=== PATIENT | female | born 1950 | race Caucasian/White ===

== ENCOUNTER 2023-11-23 11:05 | Day surgery (SDC) | payer MEDICARE ==
[2023-11-20 10:45] VITALS: BMI 26.0
[2023-11-23] MEDS ORDERED: Rocuronium Bromide 10 MG/ML (10ML VIAL) ONE (11:52)
[2023-11-23] MEDS ORDERED: Dexamethasone 20 MG/5 ML VIAL ONE (14:15)
[2023-11-23] MEDS ORDERED: Lidocaine 1% PF 5 ML VIAL ONE (14:15)
[2023-11-23] MEDS ORDERED: Ondansetron PF 4 MG/2 ML Vial ONE (14:15)
[2023-11-23] MEDS ORDERED: PROPOFOL 200 MG/20 ML VIAL ONE (14:15)
== END 2023-11-23 15:50 | disposition home or self-care (01) ==
LOC: MRI 11:05
PROVIDERS: ATTEND Family Medicine Sports Medicine
DX: M48.56XA Collapsed vertebra, not elsewhere classified, lumbar region, initial encounter for fracture (principal); E78.5 Hyperlipidemia, unspecified; J45.909 Unspecified asthma, uncomplicated; G43.909 Migraine, unspecified, not intractable, without status migrainosus; M54.9 Dorsalgia, unspecified; M19.90 Unspecified osteoarthritis, unspecified site; Z90.49 Acquired absence of other specified parts of digestive tract; Z98.890 Other specified postprocedural states; Z79.51 Long term (current) use of inhaled steroids; Z79.899 Other long term (current) drug therapy
CPT/HCPCS: 72148; J1100; J2405; J2704

== ENCOUNTER 2024-01-18 11:36 | Outpatient (CLI) | payer MEDICARE, OTHER | END 2024-01-18 11:37 | disposition home or self-care (01) | LOC: BICULT 11:36 | PROVIDERS: ATTEND Family Medicine | DX: N28.1 Cyst of kidney, acquired (principal) | CPT/HCPCS: 76770 ==

== ENCOUNTER 2024-02-22 09:51 | Outpatient (CLI) | payer MEDICARE, OTHER | END 2024-02-22 09:52 | disposition home or self-care (01) | LOC: ULT 09:51 | PROVIDERS: ATTEND Family Medicine | DX: N18.2 Chronic kidney disease, stage 2 (mild) (principal); N28.1 Cyst of kidney, acquired | CPT/HCPCS: 76770 ==